=== PATIENT | female | born 1990 | race Caucasian/White ===

== ENCOUNTER 2018-09-16 06:53 | Inpatient (IN) ==
[2018-09-16] MEDS ORDERED: Ondansetron 4 MG/2 ML VIAL IVP PRN (06:54)
[2018-09-16] MEDS ORDERED: *HR* Nalbuphine 10 MG/ML AMPUL IVP PRN (06:54)
[2018-09-16] MEDS ORDERED: Metoclopramide 10 MG/2 ML VIAL IVP PRN (06:54)
[2018-09-16] MEDS ORDERED: Naloxone 0.4 MG/ML INJ IVP PRN (06:54)
[2018-09-16] MEDS ORDERED: Famotidine 20 MG/2 ML VIAL IVP PRN (06:54)
[2018-09-16] MEDS ORDERED: Penicillin G Potassium 5,000,000 UNIT in 0.9 % Sodium Chloride Mini Bag 100 ML IVPB ONE (06:56)
[2018-09-16] MEDS ORDERED: Ringers Solution, Lactated 1,000 ML IVC SCH (07:00)
[2018-09-16] MEDS ORDERED: Oxytocin 20 units/ LR 1000 mL 20 UNIT/1,000 ML BAG IVC SCH ×3 (07:00→22:00)
--- NOTE | 2018-09-16 07:40 | Anesthesia Evaluation PreOp ---
Date of Encounter: 09/16/18 Time of Encounter: 07:38 - Past History Planned Operation: perfecto Cardiac History: Denies any Significant Hx Pulmonary History: Smoker (2 cigs per day) TAFE LECTURER History: Denies Any Significant HX Other Medical History: Denies Any Significant HX Anesthesia History: No Prior Anesthetic Complications, Past Anesthesia : Yes (39 plus 3, ) Alcohol Use: none Drug use: none Medications and Allergies Allergy/AdvReac Type Severity Reaction Status Date / Time Amoxicillin Allergy Difficulty Verified 09/16/18 07:37 Breathing oxycodone Allergy Difficulty Verified 09/16/18 07:37 Breathing Penicillins Allergy Difficulty Verified 09/16/18 07:37 Breathing - Meds/Allergy Pre-op Review Medications Reviewed: Yes Allergies Reviewed: Yes Beta Blockers on Current Med List: No Anesthesia Exam O2 Sat Height 1.63 m Weight 103.873 kg Height: 64 Weight: 230 - HEENT Pupil (Motor): Pupils equal Mallampati: II Teeth: Normal Oral Opening: Greater than 3 - TAFE LECTURER LOC: Oriented TAFE LECTURER Motor: Normal RUE, Normal LUE, Normal RLE, Normal LLE, Normal Face TAFE LECTURER Sensory: Normal: RUE, LUE, RLE, LLE, Face - Cardiac Rhythm: Regular Murmur: None JVD: No Carotid Bruit: No - Pulmonary Breath Sounds: bilateral Clear Respiratory Effort: Symmetrical Anesthesia Assess/Plan ASA Score: 2 Level of consciousness: Cooperative Anesthetic Plan: Epidural Monitoring Plan: Standard Monitors
[2018-09-16 07:58] LABS: Basophils # 0.1 K/mcL (0.0-0.2); Basophils % 0.4 %; Eosinophils # 0.3 K/mcL (0.0-0.6); Eosinophils % 2.3 %; Hematocrit 32.1 % (35.3-44.9); Hemoglobin 10.7 g/dL (11.5-15.4); Immature Granulocytes % 0.7 % (0-4); Lymphocytes # 2.9 K/mcL (0.6-4.6); Lymphocytes % 22.1 %; Mean Corpuscular HGB Conc 33.3 g/dL (31.6-35.5); Mean Corpuscular Hemoglobin 31.9 pg (28.0-33.3); Mean Corpuscular Volume 95.8 fL (83.0-100.0); Mean Platelet Volume 9.6 fL (9.4-12.4); Monocytes # 0.8 K/mcL (0.0-1.3); Monocytes % 6.1 %; Neutrophils # 8.9 K/mcL (1.6-8.9); Platelet Count 237 K/mcL (140-400); Red Blood Count 3.35 M/mcL (3.82-4.97); Red Cell Distribution Width 13.4 % (11.5-14.5); Segmented Neutrophils % 68.4 %
[2018-09-16] MEDS ORDERED: Penicillin G Potassium 2,500,000 UNIT in 0.9 % Sodium Chloride 100 ML IVPB SCH (08:00)
[2018-09-16 08:30] LABS: Amphetamine Screen,Urine Negative ng/mL (Cutoff=1000); Barbiturate Screen,Urine Negative ng/mL (Cutoff=200); Benzodiazepines Screen,Urine Negative ng/mL (Cutoff=200); Cannabinoid Screen,Urine Negative ng/mL (Cutoff = 50); Cocaine Screen,Urine Negative ng/mL (Cutoff= 300); Opiate Screen,Urine Negative ng/mL (Cutoff=300); Phencyclidine Screen,Urine Negative ng/mL (Cutoff=25)
[2018-09-16] MEDS: Clindamycin 900 MG/50 ML 900 MG/50 ML IV.SOLN IVPB SCH ×2 (08:45→16:48)
--- NOTE | 2018-09-16 10:59 | OB Labor Progress Note ---
Date of Encounter: 09/16/18 Time of Encounter: 10:56 Labor Progress Note - Subjective Subjective: Pt reports pain is 7/10 with contractions. - Cervix Cervix: 2-3/70/-2 - Heart Tones Heart Tones: Category I - [place]: 2-3 minutes - Interventions Interventions: Cook catheter placed using sterile technique. Balloon inflated with 60ml in uterus and 60ml in vagina. Pt tolerated well. - Plan Plan: Continue to monitor and titrate pitocin. Consider AROM once null is out. Anticipate .
--- NOTE | 2018-09-16 13:02 | OB/GYN History & Physical ---
Date of Encounter: 09/16/18 Time of Encounter: 13:00 Assessment and Plan (1) with 39 completed weeks gestation Current visit: Yes Status: Acute (2) Elective induction of labor planned Current visit: Yes Status: Acute History of Present Illness Chief complaint: induction HPI: Ms. Dong is a 28 year old female who presents to labor and delivery for induction of labor at 39+ weeks. She is doing well. She is having no complaints of any kind. Pitocin was started on an induction. Category 1 tracing. Patient doing well without complaints. Webber induction will be started. This patient is doing well. She is having no complaint of any kind. She has no drug allergies. Current medications include BuSpar, Flexeril and omeprazole. She has a history of GERD. She has no other chronic medical co nditions. Surgical history is negative. She has no history of abnormal Pap smears, STDs or pelvic infections. She has no history of abnormal breast findings. Socially she denies tobacco, alcohol, illicit drug use. Obstetric history significant for 2 term vaginal deliveries and, located. Family history is significant for diabetes Past Med Surg Social Fam HX - Past Medical History Medical history: GERD Additional medical history: type 2 bipolar Psychiatric history: bipolar - Past Surgical History Surgical History: no surgical history - Social History Smoking Status: Current every day smoker Packs per day: 2 cigaretts Smokeless Tobacco Status: No Alcohol use: none Drug use: none Obstetrical History - Pregnancies : 3 Para: 2 Livin Medications and Allergies Buspar 5 mg PO DAILY 09/16/18 [History] Cyclobenzaprine 10 mg PO PRN PRN 09/16/18 [History] Lamotrigine 200 mg PO DAILY 09/16/18 [History] Omeprazole 20 mg PO DAILY 09/16/18 [History] Allergy/AdvReac Type Severity Reaction Status Date / Time Amoxicillin Allergy Difficulty Verified 09/16/18 07:37 Breathing oxycodone Allergy Difficulty Verified 09/16/18 07:37 Breathing Penicillins Allergy Difficulty Verified 09/16/18 07:37 Breathing Review of System OB All systems PM: reviewed and no additional remarkable complaints except as stated Exam - Constitutional Constitutional: well developed, well nourished, no acute distress, average body habitus - HEENT HEENT: EOMI, PERRL - Neck Neck exam: full ROM - Lungs Respiratory exam: CTAB - Cardiovascular Cardiovascular exam: RRR - Abdomen Abdomen: Present: bowel sounds normal, gravid, non tender - Extremities Extremities exam: full ROM - Vagina Vagina: Present: normal moisture - Cervix Dilation: 2 Effacement: 50 Station: -2 - Uterus Uterus exam: Present: normal size Results Result Diagrams: 09/16/18 07:30 Abnormal lab results WBC 13.1 K/mcL (4.3-11.1) H 09/16/18 07:30 RBC 3.35 M/mcL (3.82-4.97) L 09/16/18 07:30 Hgb 10.7 g/dL (11.5-15.4) L 09/16/18 07:30 Hct 32.1 % (35.3-44.9) L 09/16/18 07:30 All other labs normal. - VTE Reasons for not Prescribing Prophylaxis: Treatment not Indicated - Low risk for VTE
[2018-09-16] MEDS ORDERED: Lidocaine -MPF 1% 5 ML AMPUL ONE ×2 (14:06→14:08)
[2018-09-16] MEDS ORDERED: *HR* Ropivacaine/PF 0.2% 20 ML VIAL ONE (14:06)
[2018-09-16] MEDS ORDERED: *HR* FentaNYL (PF) 100 MCG/2 ML VIAL ONE (14:06)
--- NOTE | 2018-09-16 14:07 | Event Note ---
Date of Encounter: 09/16/18 Time of Encounter: 14:06 Patient currently with Webber catheter in cervix. Sterile vaginal exam performed. Webber came out easily. On examination cervix is 8 cm/80% effaced/-2 station. Patient asking for epidural at this point. Membranes intact. Category 1 tracing. Contractions regular. We will continue induction.
[2018-09-16] MEDS ORDERED: Epidural Premix (fent/bupiv) 110 ML EP ONE (14:44)
--- NOTE | 2018-09-16 14:57 | Anesthesia Procedures ---
Addendum entered and electronically signed by Elijah Adkins CRNA 09/16/18 18:41: Delivery Date: 09/16/18 Delivery Time: 18:21 Original Note: Date of Encounter: 09/16/18 Time of Encounter: 14:20 (procedure end time 1455) Procedures: Anesthesia - Epidural/Spinal Patient ID/Chart reviewed: Yes Patient examined: Yes OB Eval: Gestational age: 39 OB Eval: Dilated at (cm): 8 OB Eval: Contractions: Non-stressed pattern Consent Obtained: Yes Supplemental Oxygen: None/Room Air Site Prep: Aseptic Technique Patient position: upright Local Anesthetic: Lidocaine 1% Amount of Local Anesthetic used: 3 Touhy Needle Gauge: 18 Touhy Needle Depth (cm): 6 Catheter Depth at Skin (cm): 12 Test Dose (1.5% Lido + Epi): Volume given (mls): 3 Test Dose Result: Negative Loading Dose: Fentanyl (mcg): 100 Loading Dose: Other: 5ml 0.2% ropivicaine Loading Dose Administered: Thru Touhy Needle Infusion Med: 0.125% Bupivacaine w/ 2 mcg/ml Fentanyl Infusion Rate (mls/hr): [address]: Tegaderm Interspace Used: L2-L3 Loss of Resistance (HAY): Yes Blood: No CSF: No Paresthesia: No
[2018-09-16] MEDS ORDERED: Epidural Premix (fent/bupiv) 110 ML EP SCH (15:00)
[2018-09-16] MEDS ORDERED: Acetaminophen 325 MG TABLET PO PRN ×2 (18:34→21:53)
[2018-09-16] MEDS ORDERED: Measles/Mumps/Rubella Vacc 0.5 ML VIAL SQ PRN ×2 (18:34→21:53)
--- NOTE | 2018-09-16 18:38 | OB/GYN Procedure Note ---
Delivery - Delivery Date: 09/16/18 Provider: [place] Intrapartum events: none Delivery induction: oxytocin, null Delivery augmentation: rupture of membranes Delivery monitor: external FHT, external uterine Anesthesia: epidural Quantitated Blood Loss: 300 - Infant (s) Infant A Delivery Date: 09/16/18 Delivery Time: 18:21 Presentation: vertex Position: OA Route of delivery: Gender: Female Viability: Viable Pounds: 6 Ounces: 9 Weight Gram: 2.98 kg at 1 minute: 9 at 5 mins: 9 Shoulder Dystocia: not encountered Specimens collected: cord blood Placenta: spontaneous Cord: 3 umbilical vessels - Repair Episiotomy: none Laceration Description: Perineal - 1st Degree - Complications Delivery complications: none - Disposition [place] disposition: stable in LDR - Comments Comments: Carla is a 28-year-old female who was induced at 39+ weeks. This patient progressed to complete and pushing and had a spontaneous vaginal delivery of a female over an intact perineum. Infant's head was on the perineum easily. The rest of the was delivered with 1 push. cried imm ediately upon delivery. The cord was clamped and cut. The was then passed to nursing in attendance. Cord blood was obtained. The placenta was then delivered spontaneously and intact. There are no cervical, vaginal, or periurethral lacerations noted. There was a first-degree perineal laceration repaired with 2 interrupted stitches of 3-0 Vicryl suture. Patient delivered a female weight was 6 lbs. 9 oz. Apgars were 9 at 1 minute and 9 at 5 minutes. Estimated blood loss 3 mL.
[2018-09-16] MEDS: Ibuprofen 600 MG TABLET PO PRN (22:39)
[2018-09-17 07:01] LABS: Basophils % 0.3 %; Eosinophils # 0.2 K/mcL (0.0-0.6); Eosinophils % 1.8 %; Hematocrit 30.8 % (35.3-44.9); Hemoglobin 10.2 g/dL (11.5-15.4); Immature Granulocytes % 0.6 % (0-4); Lymphocytes # 2.6 K/mcL (0.6-4.6); Lymphocytes % 19.1 %; Mean Corpuscular HGB Conc 33.1 g/dL (31.6-35.5); Mean Corpuscular Hemoglobin 31.7 pg (28.0-33.3); Mean Corpuscular Volume 95.7 fL (83.0-100.0); Mean Platelet Volume 9.7 fL (9.4-12.4); Monocytes # 0.9 K/mcL (0.0-1.3); Monocytes % 6.5 %; Neutrophils # 9.8 K/mcL (1.6-8.9); Platelet Count 232 K/mcL (140-400); Red Blood Count 3.22 M/mcL (3.82-4.97); Red Cell Distribution Width 13.4 % (11.5-14.5); Segmented Neutrophils % 71.7 %
[2018-09-17] MEDS: Ibuprofen 600 MG TABLET PO PRN (08:10)
[2018-09-17] MEDS ORDERED: Prenatal Vit/FA 1 EACH TABLET PO SCH ×2 (09:00)
--- NOTE | 2018-09-17 11:01 | Discharge Summary ---
Date of Encounter: 09/17/18 Time of Encounter: 10:59 - Discharge Diagnosis (1) Status post vaginal delivery Priority: Primary Status: Acute Comments: Patient meeting day one milestones. Pain well-controlled with prescribed medications. Voiding without difficulty, tolerating regular diet, bleeding light-moderate. No bowel movement yet. Anticipate discharge this evening (2) First degree perineal laceration during delivery Priority: Secondary Status: Acute Comments: Ice pack, Motrin and Dermoplast as needed for pain. - Discharge Medications Prescriptions: New Acetaminophen [Tylenol] 650 mg PO Q6HR PRN tablet PRN Reason: Mild Pain Ibuprofen [Motrin] 600 mg PO Q6HR PRN #60 tablet PRN Reason: Cramping Continue Lamotrigine 200 mg PO DAILY Cyclobenzaprine 10 mg PO PRN PRN PRN Reason: Muscle Spasm Omeprazole 20 mg PO DAILY Buspar 5 mg PO DAILY Home Medications: Buspar 5 mg PO DAILY 09/16/18 [History] Cyclobenzaprine 10 mg PO PRN PRN 09/16/18 [History] Lamotrigine 200 mg PO DAILY 09/16/18 [History] Omeprazole 20 mg PO DAILY 09/16/18 [History] Acetaminophen [Tylenol] 650 mg PO Q6HR PRN tablet 09/17/18 [Rx] Ibuprofen [Motrin] 600 mg PO Q6HR PRN #60 tablet 09/17/18 [Rx] Allergies/Adverse Reactions: Allergy/AdvReac Type Severity Reaction Status Date / Time Amoxicillin Allergy Difficulty Verified 09/16/18 07:37 Breathing oxycodone Allergy Difficulty Verified 09/16/18 07:37 Breathing Penicillins Allergy Difficulty Verified 09/16/18 07:37 Breathing Data Procedures and tests throughout hospitalization: Laboratory Tests 09/16/18 09/16/18 09/17/18 07:30 07:30 06:49 WBC 13.1 H 13.6 H RBC 3.35 L 3.22 L Hgb 10.7 L 10.2 L Hct 32.1 L 30.8 L MCV 95.8 95.7 MCH 31.9 31.7 MCHC 33.3 33.1 RDW 13.4 13.4 Plt Count 237 232 MPV 9.6 9.7 Immature Gran % 0.7 0.6 Seg Neutrophils % 68.4 71.7 Lymphocytes % 22.1 19.1 Monocytes % 6.1 6.5 Eosinophils % 2.3 1.8 Basophils % 0.4 0.3 Neutrophils # 8.9 9.8 H Lymphocytes # 2.9 2.6 Monocytes # 0.8 0.9 Eosinophils # 0.3 0.2 Basophils # 0.1 0.0 Urine Opiates Screen Negative Ur Barbiturates Screen Negative Ur Phencyclidine Scrn Negative Ur Amphetamines Screen Negative U Benzodiazepines Scrn Negative Urine Cocaine Screen Negative U Marijuana (THC) Screen Negative Ur Drug Screen Interp See Below Labs on day of discharge: Labs from last 24 hours 09/17/18 06:49 WBC 13.6 H RBC 3.22 L Hgb 10.2 L Hct 30.8 L MCV 95.7 MCH 31.7 MCHC 33.1 RDW 13.4 Plt Count 232 MPV 9.7 Immature Gran % 0.6 Seg Neutrophils % 71.7 Lymphocytes % 19.1 Monocytes % 6.5 Eosinophils % 1.8 Basophils % 0.3 Neutrophils # 9.8 H Lymphocytes # 2.6 Monocytes # 0.9 Eosinophils # 0.2 Basophils # 0.0 Date of admission: 09/16/18 06:53 Primary care physician: Linda Barnett CNP Consults: 09/16/18 18:34 Consult to Nondestructive Tester [CONS] Routine Comment: Vaginal delivery, consult needed Discharging clinician: Trinity Hutson Anticipated date of discharge: 09/17/18 - Patient Status Disposition: Home, Self-Care Condition: Good Functional capacity at discharge: independent ambulation Overall status at discharge: patient is progressing back to baseline - Discharge Instructions Follow Up With: Linda Barnett CNP [Primary Care Provider] - - Diet and Activity Activity: resume usual activities as tolerated Diet: regular diet Hospital Course Reason for admission: induction of labor Delivery: Episiotomy: none Laceration: 1st degree Other procedures: none complications: none Discharge diagnosis: IUP at term delivered baby: female Hospital course: Delivery Date: 09/16/18 Provider: [place] Intrapartum events: none Delivery induction: oxytocin, null Delivery augmentation: rupture of membranes Delivery monitor: external FHT, external uterine Anesthesia: epidural Quantitated Blood Loss: 300 - (s) Infant A Delivery Date: 09/16/18 Infant Delivery Time: 18:21 Presentation: vertex Position: OA Route of delivery: Gender: Female Viability: Viable Pounds: 6 Ounces: 9 Weight Gram: 2.98 kg at 1 minute: 9 at 5 mins: 9 Shoulder Dystocia: not encountered Specimens collected: cord blood Placenta: spontaneous Cord: 3 umbilical vessels - Repair Episiotomy: none Laceration Description: Perineal - 1st Degree - Complications Delivery complications: none - Disposition disposition: stable in LDR - Comments Comments: Carla is a 28-year-old female who was induced at 39+ weeks. This patient progressed to complete and pushing and had a spontaneous vaginal delivery of a female over an intact perineum. Infant's head was on the perineum easily. The rest of the was delivered with 1 push. cried immediately upon delivery. The cord was clamped and cut. The was then passed to nursing in attendance. Cord blood was obtained. The placenta was then delivered spontaneously and intact. There are no cervical, vaginal, or periurethral lacerations noted. There was a first-degree perineal laceration repaired with 2 interrupted stitches of 3-0 Vicryl suture. Patient delivered a female weight was 6 lbs. 9 oz. Apgars were 9 at 1 minute and 9 at 5 minutes. Estimated blood loss 3 mL. Time Attestation: Total time spent providing and/or coordinating discharge services: Time Spent: Less than 30 minutes Exam - Constitutional Vitals: Temp Pulse Resp BP Pulse Ox 98.4 F 95 16 110/72 98 09/17/18 07:38 09/17/18 07:38 09/17/18 07:38 09/17/18 07:38 09/17/18 07:38 General appearance IM: A&O X 3, pleasant, no acute distress, answers questions appropriately - Respiratory Respiratory exam: Present: CTAB - Cardiovascular Cardiovascular exam IM: Present: RRR, +S1, +S2 - GI/Abdominal GI/Abdominal exam IM: normal bowel sounds, soft - Rectal Rectal exam: deferred - External exam: normal external exam Uterine Tone: Firm Uterus Position: At Umbilicus, Midline - Extremities Exam Extremities exam IM: Present: full ROM, normal capillary refill, normal inspection - Neurological Exam Neurological exam: alert, normal gait, oriented X3
[2018-09-17 16:18] VITALS: BP 111/74
== END 2018-09-17 16:38 | disposition home or self-care (01) | DRG 806 ==
LOC: 1NENULAB 06:53 → 1NENUOBS 21:46
PROVIDERS: ADMIT Obstetrics & Gynecology; ATTEND Obstetrics & Gynecology